=== PATIENT | female | born 1970 | race American Indian/Alaskan Native ===

== ENCOUNTER 2019-05-17 17:57 | Emergency (ER) | payer SELFPAY ==
[2019-05-17 18:19] VITALS: BP 159/82
--- NOTE | 2019-05-17 18:22 | Emergency Department Report ---
ED Recheck HPI - General Chief Complaint: Recheck/Abnormal Lab/Rx Stated Complaint: HBP/OUT OF MEDS Time Seen by Provider: 05/17/19 18:17 Source: patient Mode of arrival: Ambulatory Limitations: No Limitations - History of Present Illness Initial Comments: This is a 48 y.o. F. that presents to the ER for medication refills. PMH hypertension. Patient reports running out of medication 2 weeks ago. States recently moved to [place] from [place] and haven't found a primary care doctor yet. Denies chest pain, palpitations, dyspnea, dizziness, visual changes, or headache. MD Complaint: medication refill request Onset/Timin -: week(s) Returns Today for: request for prescription Symptoms Since Prior Visit: no new symptoms Context: ran out of medication Associated Symptoms: none - Related Data Previous Rx's Medication Instructions Recorded Last Taken Type amLODIPine [Norvasc] 10 mg PO DAILY #30 tab 05/17/19 Unknown Rx Allergies Allergy/AdvReac Type Severity Reaction Status Date / Time levofloxacin [From Levaquin] Allergy Hives Verified 05/17/19 17:58 codeine AdvReac Nausea Verified 05/17/19 17:58 ED Review of Systems ROS: Stated complaint: HBP/OUT OF MEDS Other details as noted in HPI Constitutional: denies: chills, fever Respiratory: denies: cough, shortness of breath, wheezing Cardiovascular: denies: chest pain, palpitations Gastrointestinal: denies: abdominal pain, nausea, diarrhea Skin: denies: rash, lesions Neurological: denies: headache, weakness, paresthesias Psychiatric: denies: anxiety, depression ED Past Medical Hx - Past Medical History Previous Medical History?: Yes Hx Hypertension: Yes Hx Asthma: Yes - Surgical History Past Surgical History?: Yes Additional Surgical History: endometrial abaltion - Medications Home Medications: Home Medications Medication Instructions Recorded Confirmed Last Taken Type amLODIPine [Norvasc] 10 mg PO DAILY #30 tab 05/17/19 Unknown Rx ED Physical Exam - General Limitations: No Limitations General appearance: alert, in no apparent distress - Respiratory Respiratory exam: Present: normal lung sounds bilaterally. Absent: respiratory distress - Cardiovascular Cardiovascular Exam: Present: regular rate, normal rhythm. Absent: systolic murmur, diastolic murmur, rubs, gallop - GI/Abdominal GI/Abdominal exam: Present: soft, normal bowel sounds - Neurological Exam Neurological exam: Present: alert, oriented X3, normal gait - Psychiatric Psychiatric exam: Present: normal affect, normal mood - Skin Skin exam: Present: warm, dry, intact, normal color. Absent: rash ED Course Vital Signs 05/17/19 18:18 Temperature 97.6 F Pulse Rate 84 Respiratory 18 Rate Blood Pressure 159/82 [Left] O2 Sat by Pulse 98 Oximetry ED Recheck MDM - Differential Diagnosis Prescription Refill(s) - Medical Decision Making Patient is stable and was examined by me. Vitals are stable and patient in no acute distress. Patient ran out of medication for 2 weeks. Denies chest pain, palpitations, dyspnea, dizziness, visual changes, or headache. Start amlodipine 10 mg po daily. Referral to PCP for follow up. At time of discharge, the patient does not seem toxic or ill in appearance. No acute signs of distress noted. Patient agrees to discharge treatment plan of care. No further questions noted by the patient. Critical care attestation.: If time is entered above; I have spent that time in minutes in the direct care of this critically ill patient, excluding procedure time. ED Disposition Clinical Impression: Asymptomatic hypertension, Medication refill Disposition: DC-01 TO HOME OR SELFCARE Is pt being admited?: No Condition: Stable Instructions: Hypertension (ED) Additional Instructions: Take medication daily as prescribed. I have provided a list of primary care doctors for you to follow up for re maining refills. Prescriptions: amLODIPine [Norvasc] 10 mg PO DAILY #30 tab Referrals: [facility] [Outside] - 3-5 Days [facility] [Outside] - 3-5 Days [facility] [Provider Group] - 3-5 Days [facility] [Provider Group] - 3-5 Days [facility] [Provider Group] - 3-5 Days Time of Disposition: 18:39
== END 2019-05-17 18:48 | disposition home or self-care (01) ==
LOC: ED 17:57
DX: I10 Essential (primary) hypertension (principal); J45.909 Unspecified asthma, uncomplicated; Z76.0 Encounter for issue of repeat prescription; Z88.5 Allergy status to narcotic agent; Z88.1 Allergy status to other antibiotic agents
CPT/HCPCS: 99282

== ENCOUNTER 2019-11-15 16:22 | Emergency (ER) | payer SELFPAY ==
[2019-11-15 16:30] VITALS: BP 115/76
--- NOTE | 2019-11-15 17:37 | Emergency Department Report ---
Chief Complaint: Extremity Problem,Nontraumatic Stated Complaint: LFT LEG SWELLING/TINGLE/PAIN Time Seen by Provider: 11/15/19 17:18 - Exam Vital Signs: Vital Signs 11/15/19 16:29 Temperature 99.0 F Pulse Rate 81 Respiratory 20 Rate Blood Pressure 115/76 O2 Sat by Pulse 98 Oximetry MSE screening note: Focused history and physical exam performed. Due to findings the following was ordered: ED Disposition for MSE Clinical Impression: Left hip pain Disposition: MED SCREENING EXAM-LEFT Is pt being admited?: No Does the pt Need Aspirin: No Condition: Stable Additional Instructions: Recommend to take [id number] ibuprofen or Tylenol for pain management. Follow-up with a primary care provider. Referrals: PRIMARY MD PORTILLO [Primary Care Provider] - 3-5 Days TALISHA MARQUEZ MD [Staff Physician] - 3-5 Days Forms: Work/School Release Form(ED)
== END 2019-11-15 17:29 | disposition left against medical advice (07) ==
LOC: ED 16:22
DX: M25.552 Pain in left hip (principal); Z88.6 Allergy status to analgesic agent
CPT/HCPCS: 99282